=== PATIENT | male | born 1970 | race Caucasian/White ===

== ENCOUNTER 2017-08-17 14:12 | Observation (INO) ==
[2017-08-17] MEDS ORDERED: Ondansetron 4 MG/2 ML VIAL IVP STA (18:04)
[2017-08-17] MEDS ORDERED: 0.9 % Sodium Chloride 1,000 ML IVC ONE (18:05)
--- NOTE | 2017-08-17 18:25 | Emergency Department Note ---
Disposition Clinical Impression: Esophageal foreign body Qualifiers: Encounter type: initial encounter Qualified Code(s): T18.108A - Unspecified foreign body in esophagus causing other injury, initial encounter Disposition: Admitted As Inpatient Condition: Good Referrals: NONE,PCP [Primary Care Provider] - Forms: ED Satisfaction Letter, Work/School Release General Adult HPI - General Chief complaint: ED General Medical Stated complaint: Something stuck in throat, N/V Time Seen by Provider: 08/17/17 17:35 Source: patient Limitations: no limitations Nursing Notes Reviewed: Yes Vital Signs Reviewed: Yes - History of Present Illness HPI Narrative: Patient presents today for evaluation of "something stuck in his throat". The patient's symptoms started 2 weeks ago with difficulty in swallowing certain foods. Patient has had to raise his arms above his head in order to have the food pass. The patient was eating beans and hot dogs yesterday at 7 PM when she took a bite and did not get the hot dog passed. The patient has been unable to tolerate fluids since this point. Patient has had repeated episodes of vomiting what he describes as whenever he drank and describes most of it is clear. He had one episode of what he describes as stomach acid. Pain Scale: 5 - Related Data Allergies Allergy/AdvReac Type Severity Reaction Status Date / Time No Known Allergies Allergy Verified 08/17/17 14:24 Review of Systems: CONSTITUTIONAL: No weight loss, fever, chills, weakness or fatigue. HEENT: Eyes: No visual changes. Ears, Nose, Throat: No hearing loss, difficulty talking or unable to swallow. SKIN: No rash or itching. CARDIOVASCULAR: No chest pain, chest pressure or chest discomfort. No palpitations or edema. RESPIRATORY: No shortness of breath, cough or sputum. GASTROINTESTINAL: Inability to swallow GENITOURINARY: No burning on urination or hematuria. NEUROLOGICAL: No headache, dizziness, syncope, paralysis, ataxia, numbness or tingling in the extremities. No change in bowel or bladder control. MUSCULOSKELETAL: No muscle pain, back pain, joint pain or stiffness. Past Medical History - Past Medical History Medical history: Reports: other Psychiatric history: Reports: no psych history - Social History Smoking Status: Never smoker Smokeless Tobacco Status: No Alcohol use: Reports: none Drug use: Reports: none Physical Exam General: Well appearing, nontoxic, no acute distress Head: Normocephalic Atraumatic Eyes: PERRL, EOMI ENT: Airway patent, no stridor Neck: supple, no meningismus Chest: Lungs clear to auscultation bilateral Cardiac: Regular rate and rhythm, no murmurs, rubs or gallops Abdomen: soft, nontender, nondistended; no guarding, rebound, or tenderness to percussion Musculoskeletal: Calves symmetric, nontender, no palpable cord Skin: No rash, normal skin tone Neuro: Alert and Oriented to person, place, and time; - General Limitations: no limitations General appearance: alert Course - Reevaluation(s) Reevaluation #1: Glucagon has been attempted. Unsuccessful. Awaiting call back from endoscopy. Patient going to endoscopy. Nothing by mouth. - Consultations Consultation #1: Dr. Parikh has been paged at [phone]. Called back and will take patient to endoscopy. Vital Signs Temperature 98 F 08/17/17 14:18 Pulse Rate 62 08/17/17 14:18 Respiratory Rate 18 08/17/17 14:18 Blood Pressure 157/121 08/17/17 14:18 O2 Sat by Pulse Oximetry 99 08/17/17 14:18 Temperature 98 F 08/17/17 14:18 Pulse Rate 74 08/17/17 18:00 Respiratory Rate 16 08/17/17 18:00 Blood Pressure 159/121 08/17/17 18:00 O2 Sat by Pulse Oximetry 98 08/17/17 18:00 Oxygen Delivery Oxygen Delivery Room Air Attestation Statement - Attestation Attestation: I examined this patient and my medical decision-making was reviewed with the Resident Physician. I agree with the documented findings, disposition and treatment plan as described except to the extent set forth below. Patient to ED after getting choked on hotdog. States he cannot swallow anything and he feels like something is stuck. He is in no distress on examination. Satting well on room air. Plan. Glucagon did not help. Patient will be sent to endoscopy.
--- NOTE | 2017-08-17 18:58 | Anesthesia Evaluation PreOp ---
Date of Encounter: 08/17/17 Time of Encounter: 18:55 - Past History Planned Operation: Food Bolus Cardiac History: Denies any Significant Hx Pulmonary History: Denies Any Significant HX BILLET INSPECTOR History: Denies Any Significant HX Other Medical History: Other (RA on prednisone) Anesthesia History: No Prior Anesthetic Complications, Past Anesthesia Alcohol Use: rarely Drug use: none Medications and Allergies 3 Allergy/AdvReac Type Severity Reaction Status Date / Time No Known Allergies Allergy Verified 08/17/17 14:24 - Meds/Allergy Pre-op Review Medications Reviewed: Yes Allergies Reviewed: Yes Beta Blockers on Current Med List: No Anesthesia Results - Labs Laboratory Tests 04/12/17 04/12/17 13:15 13:15 WBC 10.3 Hgb 15.6 Hct 46.4 Plt Count 233 Sodium 142 Potassium 3.3 L BUN 20 Creatinine 0.95 Anesthesia Exam Vital Signs/O2 Sat, Most Current Temp Pulse Resp BP Pulse Ox 98 F 74 16 159/121 98 08/17/17 14:18 08/17/17 18:00 08/17/17 18:00 08/17/17 18:00 08/17/17 18:00 Height: 5'6''/1.68 m Weight: 169 lbs/76.7 kg NPO (# of Hours): 8 Pain Scale: 0 Pain Scale Used: Numeric (1 - 10) - HEENT Pupil (Motor): EOMI Mallampati: III Teeth: Normal Oral Opening: Greater than 3 - BILLET INSPECTOR LOC: Oriented BILLET INSPECTOR Motor: Normal RUE, Normal LUE, Normal RLE, Normal LLE, Normal Face BILLET INSPECTOR Sensory: Normal: RUE, LUE, RLE, LLE, Face - Cardiac Rhythm: Regular Murmur: None - Pulmonary Breath Sounds: bilateral Clear Respiratory Effort: Symmetrical Anesthesia Assess/Plan ASA Score: 2 Modified [place] Scale for Level of Consciousness: Cooperative, oriented, and tranquil Anesthetic Plan: General Monitoring Plan: Standard Monitors Recovery Plan: PACU
[2017-08-17] MEDS ORDERED: *HR* FentaNYL (PF) 100 MCG/2 ML VIAL ONE (19:02)
[2017-08-17] MEDS ORDERED: *HR* Propofol 200 MG/20 ML VIAL IVP ONE (19:02)
[2017-08-17] MEDS ORDERED: Ondansetron 4 MG/2 ML VIAL ONE (19:03)
[2017-08-17] MEDS ORDERED: *HR* Succinylcholine 200 MG/10 ML VIAL IVP ONE (19:03)
[2017-08-17] MEDS ORDERED: Lidocaine -MPF 2% 2 ML VIAL ONE ×2 (19:03→19:04)
[2017-08-17] MEDS ORDERED: Dexamethasone 4 MG/ML VIAL ONE (19:03)
--- NOTE | 2017-08-17 19:10 | Gastroenterology Consult Note ---
Date of Encounter: 08/19/17 Time of Encounter: 19:00 - Assessment and plan (1) Esophageal foreign body Status: Inactive Assessment and plan: Patient will have an urgent EGD done in the OR after being intubated for a airway protection by anesthesia. After the EGD will be kept in the hospital for at least 6 hour in observation bed. Qualifiers: Encounter type: initial encounter Qualified Code(s): T18.108A - Unspecified foreign body in esophagus causing other injury, initial encounter - Time Spent With Patient Total time spent is greater than 50% in coordination of care (as documented) at patient's floor/unit and/or counseling patient: GI History of Present Illness - Data of Consult Consult date: 08/17/17 - Consult Narrative Reason for consult: Food imapction History of present illness: Mr. Suh is a 47 year old male with a history of on and off GERD. For the last 2 weeks he is been having trouble swallowing solids and frequent choking per patient and he will usually put his hand above his head and that will help with the choking but last night he ate a piece of hot dog and since then he is unable to swallow any secretions complaining of pain in the lower chest. Patient he had a similar episode many years ago but at that time was prescribed Prevacid and that helped with his swallowing but lately has not taken any PPI Past Med Surg Social Fam HX - Past Medical History Medical history: other Psychiatric history: no psych history - Social History Smoking Status: Never smoker Smokeless Tobacco Status: No Alcohol use: rarely Drug use: none Review of Systems: as per [facility]. - Constitutional Vitals: Temp Pulse Resp BP Pulse Ox 98 F 74 16 159/121 98 08/17/17 14:18 08/17/17 18:00 08/17/17 18:00 08/17/17 18:00 08/17/17 18:00 - Head Head exam: Present: atraumatic - Eye Eye exam: Present: sclera anicteric - Neck Neck exam general surgery: Present: supple - Respiratory Additional comments: BiLateral good air entry wheezing - Cardiovascular Cardiovascular exam: Present: +S1, +S2 - GI/Abdominal Additional comments: Soft no focal tenderness has bilateral inguinal scar of previous inguinal surgeries. Had a recent hydrocele surgery - Skin Skin exam: Present: dry, warm Consult Discharge Plan - Plan
--- NOTE | 2017-08-17 19:52 | Anesthesia Evaluation Post Op ---
Date of Encounter: 08/17/17 Time of Encounter: 20:00 - Vital Signs Vital Signs: Vital Signs/O2 Sat/Glucose, Most Current Temp Pulse Resp BP Pulse Ox 08/17/17 19:40 98.1 F 89 18 147/106 98 08/17/17 18:00 74 16 159/121 98 - Lungs Lungs: Clear Ascult./Percussion - Airway Airway: Non-obstructed - Cardiovascular Regular Rate - Mental Status Mental Status: Alert & Oriented, Answers Appropriately - Pain Pain Scale: 0 - Nausea Vomiting Nausea Vomiting: Not Present - Hydration Hydration: Ice chips - Discharge PostOp Status: Transfer Patient to floor
== END 2017-08-17 21:35 | disposition home or self-care (01) ==
LOC: 3ANU 14:12 → EMEROO 14:12 → 3ANU 18:48 → EMEROO 18:48
PROVIDERS: ADMIT Internal Medicine; ATTEND Internal Medicine
PROC: ENDOEFB (2017-08-17 19:00)